=== PATIENT | female | born 1995 | race Two or more races ===

== ENCOUNTER 2018-02-17 18:56 | Emergency (ER) | payer MEDICAID ==
[~2018-02-17] VITALS: Ht 170.2 cm; Wt 122.5 kg
[2018-02-17 18:51] VITALS: BP 119/82
== END 2018-02-17 21:40 | disposition home or self-care (01) ==
LOC: ER 18:56
DX: M62.838 Other muscle spasm (principal); M54.2 Cervicalgia; R51 Headache; V89.2XXA Person injured in unspecified motor-vehicle accident, traffic, initial encounter; Y93.89 Activity, other specified; Y99.8 Other external cause status; Y92.89 Other specified places as the place of occurrence of the external cause
CPT/HCPCS: 72100